=== PATIENT | male | born 2000 | race African-American/Black ===

== ENCOUNTER 2024-06-28 19:29 | Emergency (ER) | payer OTHER ==
[~2024-06-28] VITALS: Ht 185.4 cm; Wt 88.8 kg
[~2024-06-28 19:29] MED LIST: NO MEDS
[2024-06-28 19:33] VITALS: O2SAT 100
[2024-06-28 21:03] LABS: CLARITY URINE CLEAR (CLEAR); COLOR URINE YELLOW (YELLOW); GLUCOSE URINE NEGATIVE (NEGATIVE); KETONES URINE TRACE (NEGATIVE); LEUKOCYTE ESTERASE URINE TRACE (NEGATIVE); NITRITE URINE NEGATIVE (NEGATIVE); OCCULT BLOOD URINE NEGATIVE (NEGATIVE); PROTEIN URINE TRACE (NEGATIVE); SPECIFIC GRAVITY URINE 1.024 (1.005-1.030)
[2024-06-28 21:37] LABS: RBC URINE NONE SEEN /hpf (0-2); SQUAMOUS EPITHELIAL CELL URINE FEW /lpf (RARE/1+)
[2024-06-28 21:38] LABS: BACTERIA URINE TRACE
[2024-06-29] MEDS: LIDOCAINE HCL 1% 20ML VIAL INFIL ONE (00:15)
[2024-06-29] MEDS: CEFTRIAXONE SODIUM 500MG VIAL IM ONE (00:15)
[2024-06-29] MEDS: DOXYCYCLINE HYCLATE 100MG CAPSULE PO ONE (00:15)
[2024-06-29] MEDS ORDERED: DOXY100C5 MT (00:34)
[2024-06-29 00:57] LABS: BASOPHILS % 0.8 % (0.0-2.0); EOSINOPHILS % 2.5 % (0.0-5.0); HEMATOCRIT. 43.4 % (42.0-52.0); HEMOGLOBIN. 14.9 g/dL (14.0-18.0); MEAN CORPUSCULAR HEMOGLOBIN 33.1 pg (28.0-32.0); MEAN CORPUSCULAR HGB CONC 34.2 g/dL (31.0-37.0); MEAN CORPUSCULAR VOLUME 96.8 fL (80.0-94.0); MEAN PLATELET VOLUME 8.6 fl (7.4-10.4); MONOCYTES % 7.7 % (2.0-8.0); PLATELET 257 x1000/uL (130-400); RED BLOOD CELL COUNT 4.49 mill/uL (4.7-6.1); RED CELL DISTRIBUTION WIDTH 12.5 % (11.6-14.6); WHITE BLOOD COUNT 6.3 x1000/uL (4.5-11.0)
[2024-06-29 01:05] LABS: CARBON DIOXIDE 26 mEq/L (21-32); CHLORIDE 105 mEq/L (98-107); POTASSIUM 4.2 mEq/L (3.5-5.1); SODIUM 140 mEq/L (136-145)
[2024-06-29 01:06] LABS: CALCIUM 10.5 mg/dL (8.7-10.4)
[2024-06-29 01:11] LABS: CREATININE 1.4 mg/dL (0.6-1.3); GLUCOSE 100 mg/dL (70-105); UREA NITROGEN BLOOD 8 mg/dL (9-23)
[2024-06-29 01:12] LABS: ALANINE AMINOTRANSFERASE 90 IU/L (10-49); ALBUMIN 5.2 g/dL (3.2-4.8); ASPARTATE AMINOTRANSFERASE 109 IU/L (<34)
[2024-06-29 01:13] LABS: BILIRUBIN DIRECT 0.2 mg/dL (<=3.0); BILIRUBIN TOTAL 0.6 mg/dL (0.1-1.0); PROTEIN TOTAL 8.5 g/dL (6.0-8.3)
[2024-06-29] MEDS: CEFTRIAXONE SODIUM 500MG VIAL IM NR (02:00)
[2024-06-29] MEDS: DOXYCYCLINE HYCLATE 100MG CAPSULE PO NR (02:00)
[2024-06-29] MEDS: LIDOCAINE HCL 1% 20ML VIAL INFIL NR (02:01)
[2024-06-29 02:20] VITALS: BP 129/74; PULSE 82; RESP 18; TEMP 37.00296; O2SAT 100
== END 2024-06-29 02:40 | disposition home or self-care (01) ==
LOC: ER 19:29
DX: N39.0 Urinary tract infection, site not specified (principal); R11.2 Nausea with vomiting, unspecified; R05.9 Cough, unspecified; Z20.2 Contact with and (suspected) exposure to infections with a predominantly sexual mode of transmission; Z11.3 Encounter for screening for infections with a predominantly sexual mode of transmission
CPT/HCPCS: 99283; 81003; 36415; 80076; 80048; 83690; 85025; 96372; J0696; J3490